=== PATIENT | female | born 1995 | race Caucasian/White ===

== ENCOUNTER 2016-07-04 18:45 | Emergency (ER) | payer BC, OTHER ==
[~2016-07-04] VITALS: Ht 167.6 cm; Wt 63.5 kg
--- OUTSIDE RECORDS SUMMARY | 2016-07-04 18:52 | XMS REPORT | Continuity of Care Document ---
Author Author Interface Organization Interface Address Unknown Phone Unavailable Problems Problem Status Onset Date Classification Date Reported Comments Source Croup (disorder) Resolved Problem 06/23/2013 [facility] Croup (disorder) Resolved Problem 11/02/2014 [facility] Contact dermatitis and other eczema due to plants [except food] 11/13/2013 Diagnosis 11/17/2013 [facility] Contact dermatitis and other eczema, unspecified cause 11/13/2013 Diagnosis 11/17/2013 [facility] Other acne 10/29/2014 Diagnosis 11/02/2014 [facility] Medications Medication Details Route Status Patient Instructions Ordering Provider Order Date Source No Known Medications No known medications Active [facility] Allergies, Adverse Reactions, Alerts Substance Category Reaction Severity Reaction type Status Date Reported Comments Source cefaclor drug allergy Allergy Active [facility] Cefaclor Assertion Rash Drug allergy [facility]. Immunizations Immunization Date Given Site Status Last Updated Comments Source No data available for this section No data available for this section [facility]. Results Order Name Results Value Reference Range Date Interpretation Comments Source Vital Signs Vital Sign Value Date Comments Source Encounters Location Location Details Encounter Type Encounter Number Reason For Visit Attending Provider ADM Date DC Date Status Source [facility] [id number] Clinic ( Outpatient) [id number] Blayne Ramirez 11/13/2013 Active [facility] [id number] Clinic ( Outpatient) [id number] Blayne Ramirez 05/08/2013 Active [facility] [id number] Clinic ( Outpatient) [id number] Avila Looney 10/29/2014 Active [employer] [facility] [id number] Blayne Ramirez 11/13/2013 11/14/2013 [facility] [id number] Avila Looney 10/29/2014 10/30/2014 [facility] [id number] Clinic ( Outpatient) [id number] Blayne Ramirez 06/20/2013 Active [facility] Procedures Procedure Code Date Perfomer Comments Source No data available for this section [facility].
--- NOTE | 2016-07-04 19:11 | ED Cardiac General ---
History of Present Illness General Chief Complaint: Cardiac/General Problems Stated Complaint: POSS HEART PALPITATIONS Nursing Triage Note: PT REPORTS EPISODES OF PALPITATIONS FOR 2 WEEKS. PT [id number] SHE HAS BEEN SEEN AT [facility] AND HAD LABS DRAWN AND A 24 HR HOLTER MONITOR. PT REPORTS SHE WAS TOLD EVERYTHING WAS OK. Source: patient Exam Limitations: no limitations History of Present Illness Time seen by provider: 18:52 Initial Comments Here with report of palpitations. She's had several episodes over the last 2 weeks and has been seen at the [facility] for this. She has had Holter monitor placement for 24 hours which did not catch any significant events per her. She has cardiology evaluation set up for this Sunday07/07/[address] Laureano. She states that she did her typical run this afternoon that was not too vigorous and afterwards took a shower. She noted some palpitations at that time but it settled down and she felt better. She then had another episode while at the basketball game and ultimately came here. She reports that her heart rate is running between 70 and 116 and she does not have any inciting event to cause the rapid heart rate. She feels palpitations with this but no chest pain. She occasionally feels dizzy. Denies taking any supplements or medications. Denies previous history of this. She does drink coffee but has cut down quite a bit and has only been doing a cup a day or less for the last week. She did have one cup of coffee today. She denies other caffeine intake. Timing/Duration: intermittent, other (2 weeks) Severity: mild Location: central Activities at Onset: none NTG SL BOILER RELINER: No ASA po BOILER RELINER: No Associated Systoms: No Chest Pain, No Cough, No Fever/Chills, No Nausea/ Vomiting, No Weakness Allergies and Home Medications Allergies Coded Allergies: cefaclor (Verified Allergy, Unknown, 07/04/16) Home Medications No Active Prescriptions or Reported Meds Review of Systems Constitutional: see HPINo chills, No fever EENTM: No Symptoms Reported Respiratory: No Symptoms Reported Cardiovascular: See HPI Irregular Heart Rate Palpitations Gastrointestinal: No Symptoms ReportedDenies Nausea, Denies Vomiting Genitourinary: No Symptoms Reported Musculoskeletal: no symptoms reportedNo back pain, No muscle pain Skin: no symptoms reported Psychiatric/Neurological: Headache (mild global)Denies Weakness, Other Endocrine: No Symptoms Reported All Other Systems Reviewed Negative Unless Noted: Yes Past Yrtssts-Pcinpg-Roquyh Hx Patient Social History Alcohol Use: Occasionally Uses Recreational Drug Use: No Smoking Status: Never a Smoker 2nd Hand Smoke Exposure: No Recent Foreign Travel: No Contact w/Someone Who Travel: No Recent Infectious Disease Expo: No Surgeries HX Surgeries: Yes Surgeries: Tonsillectomy Respiratory Hx Respiratory Disorders: No Cardiovascular Hx Cardiac Disorders: Yes Cardiac Disorders: Palpitations Neurological Hx Neurological Disorders: No Genitourinary Hx Genitourinary Disorders: No Gastrointestinal Hx Gastrointestinal Disorders: No Musculoskeletal Hx Musculoskeletal Disorders: No Endocrine Hx Endocrine Disorders: No HEENT HX ENT Disorders: No Cancer Hx Cancer: No Psychosocial Hx Psychiatric Problems: No Integumentary HX Skin/Integumentary Disorder: No Reviewed Nursing Assessment Reviewed/Agree w Nursing PMH: Yes Family Medical History Significant Family History: No Pertinent Family Hx Physical Exam Vital Signs Vital Sign - Last 12Hours 07/04/16 18:55 Temp 98.9 Pulse 83 Resp 18 B/P 131/87 Pulse Ox 99 Capillary Refill : Less Than 3 Seconds General Appearance: No Apparent Distress WD/WN HEENT: PERRL/EOMI Pharynx Normal Neck: Non Tender Supple Respiratory: Lungs Clear Normal Breath Sounds Cardiovascular: Regular Rate, Rhythm No Murmur Gastrointestinal: Non Tender Soft Extremity: Non Tender No Calf Tenderness Neurologic/Psychiatric: Alert Oriented x3 Skin: Normal Color Warm/Dry Progress/Results/Core Measures Results/Orders Lab Results Laboratory Tests Test 07/04/16 19:08 Range/Units Alanine Aminotransferase (ALT/SGPT) 21 0-55 U/L Albumin 4.5 3.2-4.5 G/DL Alkaline Phosphatase 54 40-136 U/L Anion Gap 11 5-14 MMOL/L Aspartate Amino Transf (AST/SGOT) 32 5-34 U/L BUN/Creatinine Ratio 26 Basophils # (Auto) 0.0 0.0-0.1 10^3/uL Basophils (%) (Auto) 0 0-10 % Blood Urea Nitrogen 22 H 7-18 MG/DL Calcium Level 9.7 8.5-10.1 MG/DL Carbon Dioxide Level 22 21-32 MMOL/L Chloride Level 107 98-107 MMOL/L Creatinine 0.85 0.60-1.30 MG/DL D-Dimer 0.35 0.00-0.49 UG/ML Eosinophils # (Auto) 0.0 0.0-0.3 10^3/uL Eosinophils (%) (Auto) 0 0-10 % Estimat Glomerular Filtration Rate > 60 Glucose Level 88 70-105 MG/DL Hematocrit 39 35-52 % Hemoglobin 13.1 11.5-16.0 G/DL Lymphocytes # (Auto) 1.3 1.0-4.0 X 10^3 Lymphocytes (%) (Auto) 13 12-44 % Magnesium Level 2.0 1.8-2.4 MG/DL Mean Corpuscular Hemoglobin 31 25-34 PG Mean Corpuscular Hemoglobin Concent 34 32-36 G/DL Mean Corpuscular Volume 94 80-99 FL Mean Platelet Volume 9.7 7.4-10.4 FL Monocytes # (Auto) 0.8 0.0-1.0 X 10^3 Monocytes (%) (Auto) 8 0-12 % Neutrophils # (Auto) 7.7 1.8-7.8 X 10^3 Neutrophils (%) (Auto) 78 H 42-75 % Platelet Count 208 130-400 10^3/uL Potassium Level 3.9 3.6-5.0 MMOL/L Red Blood Count 4.17 L 4.35-5.85 10^6/uL Red Cell Distribution Width 12.7 10.0-14.5 % Sodium Level 140 135-145 MMOL/L Total Bilirubin 0.5 0.1-1.0 MG/DL Total Protein 7.4 6.4-8.2 G/DL Troponin I < 0.30 <0.30 NG/ML White Blood Count 9.9 4.3-11.0 10^3/uL My Orders Orders-BARRINGTON LAWRENCE MD Ekg Tracing (07/04/16 19:01) Monitor-Rhythm Ecg Trace Only (07/04/16 19:01) Chest Pa/Lat (2 View) (07/04/16 19:01) Cbc With Automated Diff (07/04/16 19:) Comprehensive Metabolic Panel (07/04/16 19:) Fibrin Degradation Products (07/04/16 19:) Magnesium (07/04/16 19:) Troponin I (07/04/16 19:) Vital Signs/I&O Vital Sign - Last 12Hours 07/04/16 18:55 Temp 98.9 Pulse 83 Resp 18 B/P 131/87 Pulse Ox 99 Blood Pressure Mean: 102 Progress Note : Progress Note Seen and evaluated. EKG, labs and chest x-ray ordered. Monitor patient. 2004 : Patient monitored in the ER on telemetry throughout and heart rate noted to the mid 60s to low 80's without ectopy. Patient reports that she's had no events while here. Labs, EKG and chest x-ray reviewed. Patient has appointment with computer operations analyst on Sunday. Copy of chart to Dr. Blackwell and Dr. Laureano. Discharged home with return precautions. Patient verbalize understanding instructions and agreement with plan. ECG Initial ECG Impression Date: Jul 04, 2016 Initial ECG Impression Time: 19:03 Initial ECG Rate: 64 Initial ECG Rhythm: Normal Sinus Initial ECG Intervals: Normal Initial ECG Impression: Normal Initial ECG Comparisson: No Previous ECG Available Comment Sinus rhythm with normal axis. No evidence of ST elevation [place]. Normal QT interval. She has isolated initial beat noted in lead 2 with absent P wave but otherwise normal P, QRS, T configuration. P-wave inverted in lead 3 and same cycle. Interpreted by me. Diagnostic Imaging Diagonstic Imaging: Xray Plain Films/CT/US/NM/MRI: chest Comments VIA [facility]. [place], [place] NAME: CHELE ANDERSON [facility] REC#: [id number] PT STATUS: REG ER : 1995 PHYSICIAN: BARRINGTON LAWRENCE MD ADMIT DATE: 07/04/16/ER Draft Date of Exam:07/04/16 CHEST PA/LAT (2 VIEW) INDICATION: Heart palpitations PA and lateral views of the chest are obtained. COMPARISON: No previous study is available for comparison at this time. FINDINGS: Heart size and pulmonary vasculature are within normal limits, and the lungs are clear, bilaterally. IMPRESSION: Unremarkable chest. Dictated on workstation # [id number] Dict: 07/04/161920 Trans: 07/04/161923 ROSE [id number] Interpreted by: GUILLAUME VIDALES MD Electronically signed by: Departure Impression Impression: Primary Impression: Palpitations Disposition: 01 HOME, SELF-CARE Condition: Improved Departure-Patient Inst. Decision time for Depature: 20:07 Referrals: DANYELLE LAUREANO MD [facility] (PCP) Primary Care Physician Patient Instructions: Palpitations (DC) Add. Discharge Instructions: All discharge instructions reviewed with patient and/or family. Voiced understanding. Avoid caffeine. Avoid strenuous exercise until cleared by computer operations analyst. Take all supplements and nutrition drink examples to the cardiology appointment for evaluation as well. Keep appointment as scheduled. Return for worse pain, fever, vomiting, weakness, breathing problems, chest pain, persistent palpitations, dizziness or other concerns as needed. Scripts No Active Prescriptions or Reported Meds Copy Copies To 1: MATHIEU BLACKWELL MD Copies To 2: DANYELLE LAUREANO MD, TIMOTHY D MD Jul 04, 2016 19:11
[2016-07-04 19:17] LABS: BASOPHILS % (AUTO) 0 % (0-10); EOSINOPHILS % (AUTO) 0 % (0-10); LYMPHOCYTES # (AUTO) 1.3 X 10^3 (1.0-4.0); LYMPHOCYTES % (AUTO) 13 % (12-44); MEAN CORPUSCULAR HEMOGLOBIN 31 PG (25-34); MEAN CORPUSCULAR HGB CONC 34 G/DL (32-36); MEAN CORPUSCULAR VOLUME 94 FL (80-99); MEAN PLATELET VOLUME 9.7 FL (7.4-10.4); MONOCYTES # (AUTO) 0.8 X 10^3 (0.0-1.0); MONOCYTES % (AUTO) 8 % (0-12); NEUTROPHILS # (AUTO) 7.7 X 10^3 (1.8-7.8); NEUTROPHILS % (AUTO) 78 % (42-75); PLATELET COUNT 208 10^3/uL (130-400); RED BLOOD COUNT 4.17 10^6/uL (4.35-5.85); RED CELL DISTRIBUTION WIDTH 12.7 % (10.0-14.5); WHITE BLOOD COUNT 9.9 10^3/uL (4.3-11.0)
--- NOTE | 2016-07-04 19:24 | Diagnostic Imaging Report ---
INDICATION: Heart palpitations PA and lateral views of the chest are obtained. COMPARISON: No previous study is available for comparison at this time. FINDINGS: Heart size and pulmonary vasculature are within normal limits, and the lungs are clear, bilaterally. IMPRESSION: Unremarkable chest. Dictated by: Dictated on workstation # [id number]
[2016-07-04 19:36] LABS: ALANINE AMINOTRANSFERASE 21 U/L (0-55); ALBUMIN 4.5 G/DL (3.2-4.5); ANION GAP 11 MMOL/L (5-14); ASPARTATE AMINO TRANSFERASE 32 U/L (5-34); BILIRUBIN,TOTAL 0.5 MG/DL (0.1-1.0); BLOOD UREA NITROGEN 22 MG/DL (7-18); BUN/CREATININE RATIO 26; CALCIUM 9.7 MG/DL (8.5-10.1); CARBON DIOXIDE 22 MMOL/L (21-32); CHLORIDE 107 MMOL/L (98-107); CREATININE SERUM 0.85 MG/DL (0.60-1.30); GFR ESTIMATED > 60; GLUCOSE 88 MG/DL (70-105); POTASSIUM 3.9 MMOL/L (3.6-5.0); SODIUM 140 MMOL/L (135-145); TOTAL PROTEIN 7.4 G/DL (6.4-8.2)
[2016-07-04 19:42] LABS: TROPONIN I < 0.30 NG/ML (<0.30)
[2016-07-04 20:15] VITALS: BP 123/86
== END 2016-07-04 20:15 | disposition home or self-care (01) ==
LOC: EDUNIT# 18:45 → ER 18:48
DX: R00.2 Palpitations (principal)
CPT/HCPCS: 36415; 71020; 80053; 83735; 84484; 85025; 85379; 93005; 93041

== ENCOUNTER → 2016-07-25 | Outpatient (CLI) | payer BC ==
--- NOTE | 2016-07-26 07:53 | ECHOCARDIOGRAPHY REPORT ---
PROCEDURE PHYSICIAN: DANYELLE WILLIAMSON DATE OF PROCEDURE: 07/25/2016 TWO DIMENSIONAL ECHOCARDIOGRAM REPORT PRIMARY PHYSICIAN: OTHER PHYSICIAN: REFERRING PHYSICIAN: Dr. Kitty Blackwell ORDERING PHYSICIAN: INDICATION FOR THE PROCEDURE: 1. Palpitation. 2. Chest pain. MEASUREMENTS DERIVED VALUES LV DIAMETER (LAX) NORMALS NORMALS Diastolic 4.5 (3.6-5.2) Eject. Fract. 60% (60%+/-6%) Systolic (2.3-3.9) Diastolic Vol. % Shortening (0.22-0.42) Systolic Vol. Aortic Root IVS THICKNESS Diastolic 1 (0.6-1.1) LVPW THICKNESS Diastolic 1 (0.6-1.1) LA DIAMETER Systolic 2.8 (2.1-3.7) FINDINGS: 1. Technical quality is good. 2. The left ventricle is normal in size with normal contractility. Systolic function appeared to be normal. Estimated ejection fraction 60%. 3. The left atrium is normal in size. No clot or thrombus were seen within the left atrium. 4. The right atrium and right ventricle are normal in size. No clot or thrombus were seen within the right side. 5. Mitral valve is normal in morphology with mild mitral regurgitation noted by color Doppler flow. No mitral valve prolapse. No mitral valve stenosis. 6. Aortic valve is trileaflet with normal opening and closing pattern. No significant aortic valve stenosis or regurgitation was seen. 7. Tricuspid valve is normal in morphology with mild tricuspid regurgitation noted by color Doppler flow. Doppler across tricuspid valve estimated pulmonary artery pressure of 25+ right atrial pressure. 8. Pulmonic valve is functioning normally. Mild pulmonary regurgitation noted by color Doppler flow. 9. No pericardial effusion. IN CONCLUSION: 1. Normal left ventricular size and systolic function. Estimated ejection fraction 60%. 2. Mild mitral and tricuspid regurgitation. 3. Mild pulmonary regurgitation. 4. Estimated pulmonary artery pressure of 30 mmHg. Job ID: [id number] Dictated Date: 07/25/2016 16:09:32 Highway Maintenance Crew Worker Date: 07/26/2016 07:49:25 / sourav
== END ==
LOC: CARD 13:41
PROVIDERS: ATTEND Internal Medicine Cardiovascular Disease
DX: R07.89 Other chest pain (principal); R00.2 Palpitations; R06.02 Shortness of breath
CPT/HCPCS: 93306